=== PATIENT | male | born 1995 | race Caucasian/White ===

== ENCOUNTER 2017-03-28 18:27 | Emergency (ER) | payer OTHER ==
--- NOTE | 2017-03-28 21:15 | ED ORDER SUMMARY ---
..... Patient: KRYSTLE SCHROEDER OrderSheet [facility] VisitID: [id number] [place] [address] 21y, M Registration Date/Time: 03/28/2017 ORDER SHEET Weight: 74.8 kg (stated) Allergies: None GENERAL ORDERS: CBC w Diff Urgent (19:54 03/28/2017 HBivens A.R.N.P.) (Ack 19:58 AMcQuoid ER Tech1) (20:17 KPage-Kuchan R.N.) CMP Urgent (19:54 03/28/2017 HBivens A.R.N.P.) (Ack 19:58 AMcQuoid ER Tech1) (20:17 KPage-Kuchan R.N.) Urine Drug Screen Urgent (19:54 03/28/2017 HBivens A.R.N.P.) (Ack 19:58 AMcQuoid ER Tech1) (20:17 KPage-Kuchan R.N.) UA-Culture if indicated Urgent (19:54 03/28/2017 HBivens A.R.N.P.) (Ack 19:58 AMcQuoid ER Tech1) (20:17 KPage-Kuchan R.N.) MEDICATION ORDERS: IV FLUIDS: IV NS : initial bolus 1000 mL (1000 mL/hr), then none - (NOW) (19:54 03/28/2017 HBivens A.R.N.P.) (20:16 KPage-Kuchan R.N.) IV Saline Lock (19:54 03/28/2017 HBivens A.R.N.P.) (20:17 KPage-Kuchan R.N.) ORDER SHEET NOTES: [Electronically signed by Gibran Palomares R.N. (21:29 03/28/2017)] [Electronically signed by Barbara Pierre A.R.N.P. (22:02 03/28/2017)] [Electronically locked/signed by Gibran Palomares R.N. (21:29 03/28/2017)]
--- NOTE | 2017-03-28 21:15 | ED NURSING NOTES ---
Clinical Report - Nurses [facility] [address] [place] [address] 03/28/2017 18:29 Patient: KRYSTLE SCHROEDER TRIAGE Triage time 18:39 Mar 28 2017. Acuity: LEVEL 4. Chief Complaint: "NOT FEELING WELL" and (pt reports one hour ago feeling "sweaty" after drinking an "energy drink" pt denies pain "Im just feeling a little shaky"). Alert. No acute distress. SEPSIS SCREEN: Sepsis Screen: negative respiratory rate greater than 20. JANNEHT COMA SCORE: [place] Coma Scale: 15- eyes open spontaneously (4); best verbal response- oriented x 4 (5); best motor response- obeys commands (6). --18:45 Gibran Palomares R.N. 18:38 03/28/17. BP: 122/70. HR: 78. RR: 21. O2 saturation: 100%. Temp: 97.7 F. Pain level now: 0/10. --18:45 Gibran Palomares R.N. Weight: 74.8 kg stated. Height/Length: 70 inches Per Patient. BMI: 23.7. --18:44 Gibran Palomares R.N. Medications None. --18:40 Gibran Palomares R.N. Allergies None. --18:41 Gibran Palomares R.N. History Arrived by private vehicle. Historian: patient. Accompanied by family. This started just prior to arrival. Treatment COIN BOX INSPECTOR: None. PAST MEDICAL HX: Immunizations: up-to-date. SURGERY HX: No history of previous surgery. SOCIAL HX: Smoker- current status unknown ("once in a while"). Occasional alcohol use; consumes beer occasionally. No recent travel. No infectious disease exposure. No known contact with a sick individual. ABUSE ASSESSMENT: No report of abuse. SELF HARM ASSESSMENT: A self harm assessment was performed. The patient answered "no" to the question "Have you recently felt down, depressed, or hopeless?", "Have you noticed less interest or pleasure in doing things?", "Do you have thoughts of harming or killing yourself?", "Are you here because you tried to hurt yourself?", "Have you ever tried to hurt yourself before today?", "Have you recently had thoughts about harming or killing others?" and "Do you have any dangerous items in your possession?". FALL RISK ASSESSMENT: Fall risk assessment completed. No fall risk identified. NUTRITIONAL RISK ASSESSMENT: The nutritional risk assessment revealed no deficiencies. FUNCTIONAL ASSESSMENT: Functional assessment: no impairments noted. LEARNING NEEDS ASSESSMENT: The learning needs assessment revealed no barriers. SKIN INTEGRITY ASSESSMENT: Skin integrity risk assessment completed. No skin integrity risk identified. --18:45 Gibran Palomares R.N. PROBLEMS: Asthma. --18:41 Gibran Palomares R.N. ADDITIONAL SURGERIES: Testicular surgery . --18:41 Gibran Palomares R.N. Interventions ID band on patient. To treatment room. --18:45 Gibran Palomares R.N. PHYSICAL ASSESSMENT Ambulatory to room. Patient gowned. GENERAL / NEURO / PSYCH: Alert. Oriented X 4. Appears in no acute distress. Appears anxious. HEENT: Pupils equal, round and reactive to light. Mucous membranes are pink. RESPIRATORY: Respirations not labored. Breath sounds within normal limits. CVS: Capillary refill less than 2 seconds. Pulses within normal limits. GI / : Abdomen soft and nontender and normal bowel sounds. SKIN: Skin intact. Skin is warm and dry. Normal skin turgor. --18:45 Gibran Palomares R.N. NURSING PROGRESS NOTES Pulse oximeter and NIBP monitor placed on patient; psychologists- Lead II and V5; monitor alarms on. Patient gowned. Head of bed elevated. Patient identifiers checked. Call light placed in reach. Side rails up x 1. Bed placed in lowest position. Brakes of bed on. Patient ready for evaluation- chart flagged. Patient waiting for evaluation. --18:46 Gibran Palomares R.N. ( pt drinking a new energy drink states "about a half hour later I began getting sweaty and shaky, I was sweating way too much, I just felt scared"). --18:52 Gibran Palomares R.N. 20:06 03/28/2017 Site #1 started via IV in the right antecubital space with an 20g angiocath; one attempt. Blood drawn: rainbow set. Labeled in the presence of the patient and sent to the lab. Saline lock flushed with 10 mL saline. --20:16 Gibran Palomares R.N. 20:11 03/28/2017 Started bag #1 1000 mL IV Fluids IV NS (Saline); at 1000 mL/hr via site #1 via IV pump. Allergies verified and confirmed 5 rights. IV patency established. IV site checked: no pain, redness, or swelling. IV flushed thoroughly pre- and post-medication administration. --20:16 Gibran Palomares R.N. Patient waiting for lab results. ( ivf infusing as ordered, pt texting on phone and watching tv- waiting labs pending). --20:44 Gibran Palomares R.N. 20:45 03/28/17. BP: 132/80. HR: 98. RR: 18. Pain level now: 0/10. --20:47 Gibran Palomares R.N. DISPOSITION / DISCHARGE Condition at departure: improved. No learning barriers present. Discharge instructions provided and reviewed with the patient. Patient verbalized understanding. Written instructions provided in Amharic. The patient was discharged by the nurse practitioner. He was discharged home and accompanied by spouse. He left the Emergency Department ambulatory and via private vehicle. ( pt reports improvement since presentation, ivf complete, denies pain). --21:25 Gibran Palomares R.N. 21:22 03/28/17. BP: 107/77. HR: 71. RR: 17. O2 saturation: 100%. Temp: 98.2 F. Pain level now: 0/10. --21:25 Gibran Palomares R.N. 21:15 03/28/2017 IV Fluids IV NS Discontinued: upon discharge. Total amount infused: 1000 mL. IV patency established. IV site checked: no pain, redness, or swelling. IV flushed thoroughly. --21:25 Gibran Palomares R.N. 21:25 03/28/2017 Site #1 removed upon discharge. Bandaid applied. --21:25 Gibran Palomares R.N. Departure time: 2126. --21:28 Gibran Palomares R.N. Locked/Released at 03/28/2017 21:29 by Gibran Palomares R.N.
--- NOTE | 2017-03-28 21:15 | ED ORDER SUMMARY ---
..... Patient: KRYSTLE SCHROEDER OrderSheet [facility] VisitID: [id number] [place] [address] 21y, M Registration Date/Time: 03/28/2017 ORDER SHEET Weight: 74.8 kg (stated) Allergies: None GENERAL ORDERS: CBC w Diff Urgent (19:54 03/28/2017 HBivens A.R.N.P.) (Ack 19:58 AMcQuoid ER Tech1) (20:17 KPage-Kuchan R.N.) CMP Urgent (19:54 03/28/2017 HBivens A.R.N.P.) (Ack 19:58 AMcQuoid ER Tech1) (20:17 KPage-Kuchan R.N.) Urine Drug Screen Urgent (19:54 03/28/2017 HBivens A.R.N.P.) (Ack 19:58 AMcQuoid ER Tech1) (20:17 KPage-Kuchan R.N.) UA-Culture if indicated Urgent (19:54 03/28/2017 HBivens A.R.N.P.) (Ack 19:58 AMcQuoid ER Tech1) (20:17 KPage-Kuchan R.N.) MEDICATION ORDERS: IV FLUIDS: IV NS : initial bolus 1000 mL (1000 mL/hr), then none - (NOW) (19:54 03/28/2017 HBivens A.R.N.P.) (20:16 KPage-Kuchan R.N.) IV Saline Lock (19:54 03/28/2017 HBivens A.R.N.P.) (20:17 KPage-Kuchan R.N.) ORDER SHEET NOTES: [Electronically signed by Gibran Palomares R.N. (21:29 03/28/2017)] [Electronically signed by Barbara Pierre A.R.N.P. (22:02 03/28/2017)] [Electronically locked/signed by Gibran Palomares R.N. (21:29 03/28/2017)]
--- NOTE | 2017-03-28 21:15 | ED NURSING NOTES ---
Clinical Report - Nurses [facility] [address] [place] [address] 03/28/2017 18:29 Patient: KRYSTLE SCHROEDER TRIAGE Triage time 18:39 Mar 28 2017. Acuity: LEVEL 4. Chief Complaint: "NOT FEELING WELL" and (pt reports one hour ago feeling "sweaty" after drinking an "energy drink" pt denies pain "Im just feeling a little shaky"). Alert. No acute distress. SEPSIS SCREEN: Sepsis Screen: negative respiratory rate greater than 20. JANNETH COMA SCORE: [place] Coma Scale: 15- eyes open spontaneously (4); best verbal response- oriented x 4 (5); best motor response- obeys commands (6). --18:45 Gibran Palomares R.N. 18:38 03/28/17. BP: 122/70. HR: 78. RR: 21. O2 saturation: 100%. Temp: 97.7 F. Pain level now: 0/10. --18:45 Gibran Palomares R.N. Weight: 74.8 kg stated. Height/Length: 70 inches Per Patient. BMI: 23.7. --18:44 Gibran Palomares R.N. Medications None. --18:40 Gibran Palomares R.N. Allergies None. --18:41 Gibran Palomares R.N. History Arrived by private vehicle. Historian: patient. Accompanied by family. This started just prior to arrival. Treatment CHECK PROCESSOR: None. PAST MEDICAL HX: Immunizations: up-to-date. SURGERY HX: No history of previous surgery. SOCIAL HX: Smoker- current status unknown ("once in a while"). Occasional alcohol use; consumes beer occasionally. No recent travel. No infectious disease exposure. No known contact with a sick individual. ABUSE ASSESSMENT: No report of abuse. SELF HARM ASSESSMENT: A self harm assessment was performed. The patient answered "no" to the question "Have you recently felt down, depressed, or hopeless?", "Have you noticed less interest or pleasure in doing things?", "Do you have thoughts of harming or killing yourself?", "Are you here because you tried to hurt yourself?", "Have you ever tried to hurt yourself before today?", "Have you recently had thoughts about harming or killing others?" and "Do you have any dangerous items in your possession?". FALL RISK ASSESSMENT: Fall risk assessment completed. No fall risk identified. NUTRITIONAL RISK ASSESSMENT: The nutritional risk assessment revealed no deficiencies. FUNCTIONAL ASSESSMENT: Functional assessment: no impairments noted. LEARNING NEEDS ASSESSMENT: The learning needs assessment revealed no barriers. SKIN INTEGRITY ASSESSMENT: Skin integrity risk assessment completed. No skin integrity risk identified. --18:45 Gibran Palomares R.N. PROBLEMS: Asthma. --18:41 Gibran Palomares R.N. ADDITIONAL SURGERIES: Testicular surgery . --18:41 Gibran Palomares R.N. Interventions ID band on patient. To treatment room. --18:45 Gibran Palomares R.N. PHYSICAL ASSESSMENT Ambulatory to room. Patient gowned. GENERAL / NEURO / PSYCH: Alert. Oriented X 4. Appears in no acute distress. Appears anxious. HEENT: Pupils equal, round and reactive to light. Mucous membranes are pink. RESPIRATORY: Respirations not labored. Breath sounds within normal limits. CVS: Capillary refill less than 2 seconds. Pulses within normal limits. GI / : Abdomen soft and nontender and normal bowel sounds. SKIN: Skin intact. Skin is warm and dry. Normal skin turgor. --18:45 Gibran Palomares R.N. NURSING PROGRESS NOTES Pulse oximeter and NIBP monitor placed on patient; director cardiac- Lead II and V5; monitor alarms on. Patient gowned. Head of bed elevated. Patient identifiers checked. Call light placed in reach. Side rails up x 1. Bed placed in lowest position. Brakes of bed on. Patient ready for evaluation- chart flagged. Patient waiting for evaluation. --18:46 Gibran Palomares R.N. ( pt drinking a new energy drink states "about a half hour later I began getting sweaty and shaky, I was sweating way too much, I just felt scared"). --18:52 Gibran Palomares R.N. 20:06 03/28/2017 Site #1 started via IV in the right antecubital space with an 20g angiocath; one attempt. Blood drawn: rainbow set. Labeled in the presence of the patient and sent to the lab. Saline lock flushed with 10 mL saline. --20:16 Gibran Palomares R.N. 20:11 03/28/2017 Started bag #1 1000 mL IV Fluids IV NS (Saline); at 1000 mL/hr via site #1 via IV pump. Allergies verified and confirmed 5 rights. IV patency established. IV site checked: no pain, redness, or swelling. IV flushed thoroughly pre- and post-medication administration. --20:16 Gibran Palomares R.N. Patient waiting for lab results. ( ivf infusing as ordered, pt texting on phone and watching tv- waiting labs pending). --20:44 Gibran Palomares R.N. 20:45 03/28/17. BP: 132/80. HR: 98. RR: 18. Pain level now: 0/10. --20:47 Gibran Palomares R.N. DISPOSITION / DISCHARGE Condition at departure: improved. No learning barriers present. Discharge instructions provided and reviewed with the patient. Patient verbalized understanding. Written instructions provided in Welsh. The patient was discharged by the nurse practitioner. He was discharged home and accompanied by spouse. He left the Emergency Department ambulatory and via private vehicle. ( pt reports improvement since presentation, ivf complete, denies pain). --21:25 Gibran Palomares R.N. 21:22 03/28/17. BP: 107/77. HR: 71. RR: 17. O2 saturation: 100%. Temp: 98.2 F. Pain level now: 0/10. --21:25 Gibran Palomares R.N. 21:15 03/28/2017 IV Fluids IV NS Discontinued: upon discharge. Total amount infused: 1000 mL. IV patency established. IV site checked: no pain, redness, or swelling. IV flushed thoroughly. --21:25 Gibran Palomares R.N. 21:25 03/28/2017 Site #1 removed upon discharge. Bandaid applied. --21:25 Gibran Palomares R.N. Departure time: 2126. --21:28 Gibran Palomares R.N. Locked/Released at 03/28/2017 21:29 by Gibran Palomares R.N.
--- NOTE | 2017-03-28 21:15 | ED CLINICAL REPORT ---
Clinical Report - Physicians/Mid Levels [facility] [address] [place] [address] 03/28/2017 18:29 Patient: KRYSTLE SCHROEDER Time Seen: 1937; initial patient contact, initial documentation, patient care assumed. Arrived- By private vehicle. Historian- patient. HISTORY OF PRESENT ILLNESS Chief Complaint: FEVER, CHILLS, SWEATS, SHAKING and "NOT FEELING WELL". This started just prior to arrival and is still present. He has had subjective fever. No muscle aches, loss of appetite, chest pain, dyspnea or cough. Additional history - No known contact with a sick individual. Has not recently been ill. He is not immunocompromised. No organ transplant. No recent absolute neutrophil count. No recent hospitalization. No new medication recently administered. No history of HIV illness. No indwelling line. No recent travel. No known exposure to an animal. No drug use. Similar symptoms previously: None. Recent medical care: Not recently seen/assessed. REVIEW OF SYSTEMS No vomiting, headache, sinus pain or sore throat. All systems otherwise negative, except as recorded above. PAST HISTORY See nurses notes. PROBLEMS: Asthma. --18:41 Gibran Palomares RGabriel. ADDITIONAL SURGERIES: Testicular surgery . --18:41 Gibran Palomares RGabriel. SOCIAL HISTORY Light tobacco smoker. Occasional alcohol use. History of occasional drug use: marijuana. Not exposed to second-hand smoke at home. No recent travel. Is a local resident. FAMILY HISTORY Negative. ADDITIONAL NOTES The nursing notes have been reviewed with agreement regarding the chief complaint, HPI, ROS, PMH and patient medications and allergies. PHYSICAL EXAM Vital Signs: 03/28/2017 18:38 BP: 122/70. HR: 78. RR: 21. O2 saturation: 100%. Temp: 97.7 F. Pain level now: 0/10. Have been reviewed as normal and appear to be correct. Appearance: Alert. No acute distress. Eyes: Pupils equal, round and reactive to light. Eyes normal inspection. ENT: Ears normal. Nose normal. Pharynx normal. Uvula midline. Neck: Normal inspection. Neck supple. CVS: Normal heart rate and rhythm. Heart sounds normal. Pulses normal. Respiratory: No respiratory distress. Breath sounds normal. Chest nontender. Abdomen: Soft and nontender. Back: Normal inspection. Skin: Skin warm and dry. Normal skin color. No rash. Normal skin turgor. Extremities: Extremities exhibit normal ROM. Extremities nontender. Neuro: Oriented X 3. No motor deficit. No sensory deficit. LABS, X-RAYS, AND EKG Laboratory Tests: UA-Culture if indicated: (LU: 03/28/2017 20:12) ( [facility] 03/28/2017 20:42) Final results Test Result Flag Units (Reference) URINE COLOR YELLOW URINE APPEARANCE CLEAR URINE GLUCOSE NEGATIVE (NEGATIVE) URINE BILIRUBIN NEGATIVE (NEGATIVE) URINE KETONE NEGATIVE (NEGATIVE) URINE SPECIFIC GRAVITY 1.015 (1.010-1.030) URINE PH 7.5 (5.0-8.0) URINE PROTEIN NEGATIVE (NEGATIVE) URINE UROBILINOGEN 0.2 EU/dL (0.2-1.0) URINE NITRITE NEGATIVE (NEGATIVE) URINE BLOOD NEGATIVE (NEGATIVE) URINE LEUK ESTERASE NEGATIVE (NEGATIVE) URINE RBC 0-1 rbc/hpf (0-1) URINE WBC RARE wbc/hpf (0-1) URINE EPITHELIAL CELLS RARE EPI/hpf (0-5) URINE BACTERIA NONE SEEN (NONE SEEN) URINE COMMENT CULT NOT INDICATED URINE CULTURES ARE SET-UP BASED ON THE FOLLOWING CRITERIA:POSITIVE NITRITEPOSITIVE LEUKOCYTE ESTERASEGREATER THAN 10 WHITE BLOOD CELLSMODERATE (2+) OR GREATER BACTERIA CBC w Diff: (LU: 03/28/2017 20:12) ( [facility] 03/28/2017 20:31) Final results Test Result Flag Units (Reference) WHITE BLOOD COUNT 13.2 H K/uL (4.5-11.5) RED BLOOD COUNT 5.14 M/uL (4.50-5.90) HEMOGLOBIN 15.7 gm/dL (13.5-17.5) HEMATOCRIT 45.5 % (41.0-53.0) MEAN CELL VOLUME 89 fL (80-100) MEAN CORPUSCULAR HGB 31 pg (26-34) MEAN CORPUSCULAR HGB CONC 35 g/dL (31-37) RED CELL DISTRIBUTION WIDTH 12.6 % (11.6-14.8) PLATELET COUNT 282 K/uL (150-400) NEUTROPHIL % 85.0 H % (50-75) LYMPH % 7.9 L % (25-40) MONO % 6.8 % (3-14) EOSINOPHIL % 0 % (0-4) BASOPHIL % 0.3 % (0-2) Urine Drug Screen: (LU: 03/28/2017 20:12) ( [facility] 03/28/2017 20:43) Final results Test Result Flag Units (Reference) AMPHETAMINE/METHAMPHETAMINE NEGATIVE (NEGATIVE) BARBITURATE NEGATIVE (NEGATIVE) BENZODIAZEPINE NEGATIVE (NEGATIVE) CANNABINOID NEGATIVE (NEGATIVE) COCAINE NEGATIVE (NEGATIVE) ECSTASY NEGATIVE (NEGATIVE) METHADONE NEGATIVE (NEGATIVE) OPIATE NEGATIVE (NEGATIVE) The urine drug screen is a qualitative screening test fordrug overdose and abuse. All screen results should beconsidered as presumptive.Drugs screened for are as follows:BenzodiazepinesCocaineAmphetamines/MetamphetaminesTHC (Tetrahydrocannabinol)OpiatesBarbituratesEcstasyMethadonePositive results are unconfirmed. For confirmation, notifythe lab for the specimen to be sent to the reference lab.All confirmations must be performed by a differentmethodology.The ingestion of natural herbal and plant productscontaining Ephedra/Ephedra metabolites can produce in urineone or more substances capable of cross reacting withamphetamine/methamphetamine immunoassays. These testsprovide a preliminary result only. A more specificalternative chemical method must be used to obtain aconfirmed analytical result. CMP: (LU: 03/28/2017 20:12) ( [facility] 03/28/2017 20:43) Final results Test Result Flag Units (Reference) GLUCOSE 94 mg/dL (70-110) BUN 16 mg/dL (7-18) CREATININE 0.9 mg/dL (0.6-1.3) Estimated GFR >60 mL/min Estimated GFR- >60 mL/min Note: Persistent reduction over 3 months in eGFR<60 mL/min/1.73 m2 defines CKD. Patients with eGFR values>=60 mL/min/1.73 m2 may also have CKD if evidence ofpersistent proteinuria. Additional information may be foundat www.kidney.org. SODIUM 143 mmol/L (136-145) POTASSIUM 4.1 mmol/L (3.5-5.1) CHLORIDE 103 mmol/L (98-107) CARBON DIOXIDE 30 mmol/L (21-32) CALCIUM 9.1 mg/dL (8.5-10.1) TOTAL PROTEIN 8.3 H g/dL (6.4-8.2) ALBUMIN 4.6 g/dL (3.3-5.0) BILIRUBIN, TOTAL 0.7 mg/dL (0.0-1.0) ALKALINE PHOSPHATASE 69 U/L (46-116) AST (SGOT) 23 U/L (15-37) ALT (SGPT) 45 U/L (12-78) . PROGRESS AND PROCEDURES Patient counseled in person regarding the patient's stable condition, test results and diagnosis. 21:12. Differential Diagnosis: Other possible considerations: flu, viral illness, thyroid disease, substance abuse. Above considerations are based on history, physical exam, reassessment and laboratory data. Differential diagnosis was discussed with patient. Disposition: Discharged home in good and improved condition (21:15). Condition: good and stable. CLINICAL IMPRESSION Acute viral syndrome INSTRUCTIONS Alternate Tylenol (Acetaminophen) and Motrin (Ibuprofen) for fever, temperature greater than 101 degrees. Take according to label instructions. Do not work today. Drink plenty of fluids for the next 24 hours until better. Warnings: GENERAL WARNINGS: Return or contact your physician immediately if your condition worsens or changes unexpectedly, if not improving as expected, or if other problems arise. Specifically return if problem worsens. Follow-up: Follow up with your doctor in about five days as needed. Call for an appointment. Summary of care provided to patient. Understanding of the discharge instructions verbalized by patient. (Electronically signed by Barbara Pierre A.R.N.P. 03/28/2017 22:02)
--- NOTE | 2017-03-28 22:03 | ED MED RECONCILIATION SUMMARY ---
Patient: KRYSTLE SCHROEDER Medication Reconciliation Report [facility] VisitID: [id number] [address] [place] [address] 21y, M Registration Date/Time: 03/28/2017 Weight: 74.8 kg Height/Length: 70 in. BMI: 23.7 ALLERGIES: None The patient's Home Medications are listed below: NONE. The source(s) of the original Home Medication information: Not obtained. The following Medications were given to the patient in the Emergency Department: IV NS IV Fluids bolus 0, then 1000 mL/hr, administered: 03/28/2017 8:11:00 PM The following Medications were prescribed to the patient: None.
--- NOTE | 2017-03-28 22:03 | ED DISCHARGE INSTRUCTIONS ---
Patient: KRYSTLE SCHROEDER General Instructions [facility] VisitID: [id number] [place] [address] 21y, M Registration Date/Time: 03/28/2017 Acute viral syndrome INSTRUCTIONS Alternate Tylenol (Acetaminophen) and Motrin (Ibuprofen) for fever, temperature greater than 101 degrees. Take according to label instructions. Do not work today. Drink plenty of fluids for the next 24 hours until better. Warnings: GENERAL WARNINGS: Return or contact your physician immediately if your condition worsens or changes unexpectedly, if not improving as expected, or if other problems arise. Specifically return if problem worsens. Follow-up: Follow up with your doctor in about five days as needed. Call for an appointment. Summary of care provided to patient. Understanding of the discharge instructions verbalized by patient. ADDITIONAL INFORMATION Viral Syndrome (Adult) A viral illness may cause a number of symptoms. The symptoms depend on the part of the body that the virus affects. If it settles in the nose, throat, and lungs, it may cause cough, sore throat, congestion, and sometimes headache. If it settles in the stomach and intestinal tract, it may cause vomiting and diarrhea. Sometimes it causes vague symptoms like "aching all over," feeling tired, loss of appetite, or fever. A viral illness usually lasts1 to 2 weeks, but sometimes it lasts longer. In some cases, a more serious infection can look like a viral syndrome in the first few days of the illness. You may need anotherexam and additional teststo know the difference.Watch for the warning signs listed below. Home care Follow these guidelines for taking care of yourself at home: If symptoms are severe, rest at home for the first 2 to 3 days. Stay away from cigarette smoke - both your smoke and the smoke from others. You may useacetaminophen or ibuprofen for fever, muscle aching, and headache, unless another medicine was prescribed for this.If you have chronic liver or kidney disease or ever had a stomach ulcer or GI bleeding, talk with your doctor before using these medicinesNo one who is younger than 18 and ill with a fever should take aspirin. It may cause severe liver damage. Your appetite may be poor, so a light diet is fine. Avoid dehydration by drinking 8 to 12 8-ounce glasses of fluids each day. This may include water; orange juice; lemonade; apple, grape, and cranberry juice; clear fruit drinks; electrolyte replacement and sports drinks; and decaffeinated teas and coffee. If you have been diagnosed with a kidney disease, ask your doctor how much and what types of fluids you should drink to prevent dehydration. If you have kidney disease, drinking too much fluid can cause it build up in the your body and be dangerous to your health. Fecj-acx-rjervcf remedies won't shorten the length of the illness but may be helpful forcough, sore throat; and nasal and sinus congestion. Don't use decongestants if you have high blood pressure. Follow-up care Follow up with your health care provider if you do not improve over the next week. When to seek medical care Get prompt medical attention if any of these occur: Cough with lots of colored sputum (mucus) or blood in your sputum Chest pain, shortness of breath, wheezing, or difficulty breathing Severe headache; face, neck, or ear pain Severe, constant pain in the lower right side of your belly (abdominal) Continued vomiting (cant keep liquids down) Frequent diarrhea (more than 5 times a day); blood (red or black color) or mucus in diarrhea Feeling weak, dizzy, or like you are going to faint Extreme thirst Fever of 100.4 F (38 C) oral or higher, not better with fever medication Convulsion Fever Control (Adult) A fever is a natural reaction of the body to an illness. In most cases, the temperature itself is not harmful. It actually helps the body fight infections. A fever does not need to be treated unless you feel very uncomfortable. Home Care If you feel warm, check your temperature. If you feel very uncomfortable and your temperature is at or higher than 100.4F (38C) oral, you may take acetaminophen (Tylenol) every 4 to 6 hours. If you cant take or keep down oral medicine, ask your pharmacist for Tylenol suppositories, which you can get without a prescription. If the fever does not respond to acetaminophen within 1 hour, take ibuprofen (Advil or Motrin). If this works, keep taking the ibuprofen every 6 to 8 hours. Note: If you have chronic liver or kidney disease or ever had a stomach ulcer or GI bleeding, talk with your doctor before using these medications. If either medication alone does not keep the fever down, you may alternate the two medicines every 3 to 4 hours, only if your healthcare provider has instructed you to do so. For example, take Motrin then wait 3 hours, take Tylenol then wait 3 hours, take Motrin, and so on. Follow your healthcare providers instructions exactly. Clothing: Keep clothing light because excess body heat is lost through the skin. The fever will go up if you wear extra layers or wrap in blankets. Fluids: Fever causes the body to lose water through evaporation. Drink plenty of fluids such as water, juice, clear sodas, tonya wiliam, or lemonade. Do not use aspirin in anyone under 18 years of age who is ill with a fever. It can cause severe liver damage. Follow Up with your doctor or as advised by our staff if you do not get better after 48 hours. Get Prompt Medical Attention if any of the following occur: Fever does not get better after taking fever medication Fast or difficult breathing Earache, sinus pain, stiff or painful neck, headache, repeated diarrhea or vomiting You feel unusually irritable, drowsy, or confused A rash appears You feel weak or dizzy, or that you might faint You have been given the following additional information: Viral Syndrome (Adult) Fever Control (Adult) Do not work today. (Electronically signed by Barbara Pierre A.R.N.P. 03/28/2017 22:02)
--- NOTE | 2017-03-28 22:03 | ED MED RECONCILIATION SUMMARY ---
Patient: KRYSTLE SCHROEDER Medication Reconciliation Report [facility] VisitID: [id number] [address] [place] [place] [address] 21y, M Registration Date/Time: 03/28/2017 Weight: 74.8 kg Height/Length: 70 in. BMI: 23.7 ALLERGIES: None The patient's Home Medications are listed below: NONE. The source(s) of the original Home Medication information: Not obtained. The following Medications were given to the patient in the Emergency Department: IV NS IV Fluids bolus 0, then 1000 mL/hr, administered: 03/28/2017 8:11:00 PM The following Medications were prescribed to the patient: None.
--- NOTE | 2017-03-28 22:03 | ED MAR SUMMARY ---
..... Medication Administration Record [facility] [address] [place] [address] Patient: KRYSTLE SCHROEDER Visit ID: [id number] 21y, M Weight: 74.8 kg Height/Length: 70 in BMI: 23.7 ALLERGIES: None Start 20:11 03/28/2017 Gibran Palomares RValentine, Stop 21:15 03/28/2017 Gibran Palomares RValentine Medication Administered: IV NS (SALINE), Dose: IV Fluids, Rate: 1000 mL/hr, Dispensed: 1000 mL bag, Site: #1 right AC. Medication Ordered: IV NS : initial bolus 1000 mL (1000 mL/hr), then none - (NOW).
--- NOTE | 2017-03-28 22:03 | ED MAR SUMMARY ---
..... Medication Administration Record [facility] [address] [place] [address] Patient: KRYSTLE SCHROEDER Visit ID: [id number] 21y, M Weight: 74.8 kg Height/Length: 70 in BMI: 23.7 ALLERGIES: None Start 20:11 03/28/2017 Gibran Palomares RValentine, Stop 21:15 03/28/2017 Gibran Palomares RValentine Medication Administered: IV NS (SALINE), Dose: IV Fluids, Rate: 1000 mL/hr, Dispensed: 1000 mL bag, Site: #1 right AC. Medication Ordered: IV NS : initial bolus 1000 mL (1000 mL/hr), then none - (NOW).
== END 2017-03-28 21:27 | disposition home or self-care (01) ==
LOC: ED SRH 18:27
DX: B34.9 Viral infection, unspecified (principal); F17.210 Nicotine dependence, cigarettes, uncomplicated; F12.10 Cannabis abuse, uncomplicated
CPT/HCPCS: 90004; 90100; 92760; 92761; 92762; 92763; 92764; 92765; 92766; 92767; 95059